=== PATIENT | female | born 1995 | race Caucasian/White ===

== ENCOUNTER 2017-11-12 19:14 | Emergency (ER) | END 2017-11-12 22:08 | disposition home or self-care (01) ==

== ENCOUNTER 2018-05-31 12:10 | Outpatient (CLI) | payer MEDICAID ==
[~2018-05-31] VITALS: Ht 175.3 cm; Wt 75.4 kg
[~2018-05-31 12:10] MED LIST: CEPH-443 PO; IBUP-1542 PO; NORE1TAB70 PO
[2018-05-31 12:20] VITALS: Ht 175.3 cm; Wt 75.4 kg
--- NOTE | 2018-05-31 14:02 | PN ---
Triage Information Date/Time Reason for visit: Uterine contractions Weeks of Gestation 35+ /Para 3/0 Diabetes: none Hypertention: none Objective Heart Rate: 140's Contractions: None Results/Medications Result Diagram: 05/31/18 1255 05/31/18 1255 Results 24 hrs Laboratory Tests Test 05/31/18 12:55 White Blood Count 9.7 Red Blood Count 3.89 L Hemoglobin 11.2 L Hematocrit 34.4 L Mean Corpuscular Volume 88.4 Mean Corpuscular Hemoglobin 28.8 L Mean Corpuscular Hemoglobin Concent 32.6 Red Cell Distribution Width 12.3 Platelet Count 152 Mean Platelet Volume 13.1 H Immature Granulocytes % 0.700 H Neutrophils % 72.2 Lymphocytes % 18.0 Monocytes % 8.1 Eosinophils % 0.8 Basophils % 0.2 Nucleated Red Blood Cells % 0.0 Immature Granulocytes # 0.070 H Neutrophils # 7.0 Lymphocytes # 1.8 Monocytes # 0.8 Eosinophils # 0.1 Basophils # 0.0 Nucleated Red Blood Cells # 0.0 Prothrombin Time 12.6 Prothrombin Time Ratio 1.0 INR International Normalized Ratio 0.93 Activated Partial Thromboplast Time 25.9 Urine Color YELLOW Urine Clarity SLIGHTLY CLOUDY A Urine pH 5.0 Urine Specific [place] 1.018 Urine Ketones 1+ H Urine Nitrite NEGATIVE Urine Bilirubin NEGATIVE Urine Urobilinogen 1+ H Urine Leukocyte Esterase 1+ H Urine Microscopic RBC 1 Urine Microscopic WBC 5 Urine Squamous Epithelial Cells MODERATE Urine Mucus FEW A Urine Hemoglobin NEGATIVE Urine Glucose NEGATIVE Urine Total Protein NEGATIVE Sodium Level 138 Potassium Level 3.9 Chloride Level 108 Carbon Dioxide Level 25 Anion Gap 5 Blood Urea Nitrogen 6 L Creatinine 0.60 Est Glomerular Filtrat Rate mL/min > 60 Glucose Level 75 Uric Acid 4.6 Calcium Level 9.6 Total Bilirubin 0.4 Direct Bilirubin 0.00 Indirect Bilirubin 0.4 Aspartate Amino Transf (AST/SGOT) 26 Alanine Aminotransferase (ALT/SGPT) 19 Alkaline Phosphatase 178 H Total Protein 6.4 Albumin 3.3 Globulin 3.10 Albumin/Globulin Ratio 1.06 Disposition: Discharge Assessment/Plan BPP 11/18 CX closed Suspected Cholelithiasis Bile acid is pending [facility] hospital in 2 days for NST BPP Questions answered Precautions discussed Follow up with provider PRISCILA ZAMUDIO M.D. May 31, 2018 14:01
--- NOTE | 2018-05-31 14:14 | TRIAGE ---
OB Triage Datetime Report Generated by CPN: 05/31/2018 14:14 Datetime: 05/31/2018 13:52 Stage of : OB Triage Maternal Assessment Level of Consciousness: Fully Conscious DTR's/Clonus: DTRs 1+ Headache: Denies Breath Sounds, Left: Clear and Equal Breath Sounds, Right: Clear and Equal Nausea/Vomiting: Denies RUQ Epigastric Pain: Denies Labor Evaluation Frequency: OCC Monitor Mode: External Duration (sec)2399: 40-50 Quality: Mild Pattern: Normal: <= 5 Contractions in 10 Minutes Resting Tone [place]: Relaxed Heart Rate FHR Baseline Rate: 135 Monitor Mode: External US Variability: Moderate 6-25 bpm Accelerations: 15X15 Decelerations: None Category: Category I Pain Assessment Pain Presence: None/Denies Pain Type: N/A Membrane Status: Intact Datetime: 05/31/2018 13:25 Vaginal Exam Dilatation (cms): 0.0 Effacement (%): 0 Station: -3 Exam By: RRAMIREZ,RN Datetime: 05/31/2018 13:10 Maternal Assessment Level of Consciousness: Fully Conscious DTR's/Clonus: DTRs 1+ Headache: Denies Blurred Vision: No Respiratory Effort: Unlabored Breath Sounds, Left: Clear and Equal Breath Sounds, Right: Clear and Equal Nausea/Vomiting: Denies RUQ Epigastric Pain: Denies Facial Edema: None Labor Evaluation Frequency: OCC Monitor Mode: External Duration (sec)2399: 40-50 Quality: Mild Pattern: Normal: <= 5 Contractions in 10 Minutes Resting Tone [place]: Relaxed Heart Rate FHR Baseline Rate: 135 Monitor Mode: External US Variability: Moderate 6-25 bpm Accelerations: 15X15 Decelerations: None Category: Category I Pain Assessment Pain Presence: None/Denies Pain Type: N/A Membrane Status: Intact Datetime: 05/31/2018 12:19 Assessment Type: Triage EGA: 35.4 Maternal Assessment Level of Consciousness: Fully Conscious DTR's/Clonus: DTRs 2+; No Clonus Headache: Denies Blurred Vision: No Respiratory Effort: Unlabored; Regular Rhythm; Equal Expansion Breath Sounds, Left: Clear and Equal Breath Sounds, Right: Clear and Equal Nausea/Vomiting: Denies RUQ Epigastric Pain: Denies Lower Extremities Edema: None Degree: None Upper Extremities Edema: None Degree: None Facial Edema: None Fall Risk Assessment History of Falling: (0) No Secondary Diagnosis: (0) No Ambulatory Aid: (0) Bedrest/Nurse Assist IV Therapy: (0) No Gait: (0) Normal/Bedrest/Immobile Mental Status: (0) Oriented to Own Ability Fall Score: 0 Fall Risk Score Definition: No Risk: No action required Datetime: 05/31/2018 12:01 Time of Arrival: 05/31/2018 12:01 Arrived By: Ambulatory Arrived From: Home Chief Complaint: PT CAME IN C/O CRAMPING AND CHOLESTASIS Movement: Present Contractions: Denies/Absent Rupture of Membranes: Denies Vaginal Discharge: Denies Recent Sexual Intercouse: Denies Abdominal Trauma: Not Applicable Additional Patient Complaints: NONE Time Provider Notified: 05/31/2018 12:19 Provider Notified: POLLO Initial Plan: MONITOR AND BPP
== END 2018-05-31 14:10 | disposition home or self-care (01) ==
LOC: OBT 12:10 → L-D 12:12 → OBT 14:10
PROVIDERS: ATTEND Obstetrics & Gynecology
DX: O62.9 Abnormality of forces of labor, unspecified (principal); Z3A.35 35 weeks gestation of pregnancy
CPT/HCPCS: 76818; 80053; 81001; 84560; 85025; 85610; 85730; Z7500; G0463

== ENCOUNTER 2018-07-01 09:27 | Inpatient (IN) | payer MEDICAID ==
[~2018-07-01] VITALS: Ht 175.3 cm; Wt 78.3 kg
[2018-07-01 09:48] VITALS: Ht 175.3 cm; Wt 78.3 kg
[2018-07-01 09:49] VITALS: BP 126/73; PULSE 74; RESP 18
--- NOTE | 2018-07-01 12:43 | TRIAGE ---
OB Triage Datetime Report Generated by CPN: 07/01/2018 12:43 Datetime: 07/01/2018 11:20 Time of Arrival: 07/01/2018 09:25 EGA: 39.4 Arrived By: Ambulatory Arrived From: Home Chief Complaint: c/o uc Movement: Present Contractions: Irregular Rupture of Membranes: Denies Vaginal Bleeding: None Vaginal Discharge: Denies Recent Sexual Intercouse: Denies Abdominal Trauma: Not Applicable Patient Complaints: Contractions Time Provider Notified: 07/01/2018 09:54 Provider Notified: Initial Plan: r/o labor Datetime: 07/01/2018 10:31 Labor Evaluation Frequency: x5 Monitor Mode: External Duration (sec)2399: 50-120 Quality: Mild Pattern: Normal: <= 5 Contractions in 10 Minutes Resting Tone [place]: Relaxed Heart Rate FHR Baseline Rate: 135 Monitor Mode: External US Variability: Moderate 6-25 bpm Accelerations: 15X15 Decelerations: Variable Category: Category II Pain Assessment Pain Scale: 10 Pain Presence: Intermittent Pain Type: Contraction Pain Location: Abdomen Pain Goal: 3 Datetime: 07/01/2018 09:48 Vaginal Exam Dilatation (cms): 0.5 Exam By: wliu Datetime: 07/01/2018 09:47 Assessment Type: Triage Maternal Assessment Level of Consciousness: Fully Conscious DTR's/Clonus: DTRs 2+; No Clonus Headache: Denies Blurred Vision: No Respiratory Effort: Unlabored; Regular Rhythm; Equal Expansion Breath Sounds, Left: Clear and Equal Breath Sounds, Right: Clear and Equal Nausea/Vomiting: Denies RUQ Epigastric Pain: Denies Lower Extremities Edema: None Degree: None Upper Extremities Edema: None Degree: None Facial Edema: None Fall Risk Assessment History of Falling: (0) No Secondary Diagnosis: (0) No Ambulatory Aid: (0) Bedrest/Nurse Assist IV Therapy: (0) No Gait: (0) Normal/Bedrest/Immobile Mental Status: (0) Oriented to Own Ability Fall Score: 0 Fall Risk Score Definition: No Risk: No action required Datetime: 05/31/2018 14:10 Time of Arrival: 07/01/2018 09:25 EGA: 40.0 Chief Complaint: c/o uc, deny srom, deny vag. bleeding Movement: Present Contractions: Irregular Rupture of Membranes: Denies Vaginal Bleeding: None Vaginal Discharge: Denies Recent Sexual Intercouse: Denies Abdominal Trauma: Not Applicable Patient Complaints: Contractions Time Provider Notified: 07/01/2018 09:54 Provider Notified: marcos Initial Plan: r/o labor Datetime: 05/31/2018 12:19 EGA: 35.4 Fall Score: 0 Fall Risk Score Definition: No Risk: No action required
[2018-07-01] MEDS ORDERED: MISOPROSTOL 200 MCG TAB PR PRN (13:00)
[2018-07-01] MEDS ORDERED: AMPICILLIN 2 GM/NS (PMX) 100 ML IV ONE (13:00)
[2018-07-01] MEDS ORDERED: METHYLERGONOVINE 0.2 MG INJ IM PRN (13:00)
[2018-07-01] MEDS ORDERED: MISOPROSTOL 50 MCG CAPSULE PO SCH (13:00)
[2018-07-01] MEDS ORDERED: IBUPROFEN 600 MG TAB PO PRN (13:00)
[2018-07-01] MEDS ORDERED: OXYCODONE/ASPIRIN (4.88/325) TAB PO PRN (13:00)
[2018-07-01] MEDS ORDERED: LIDOCAINE 1% (MPF) 30 ML INJ INJ PRN (13:00)
[2018-07-01] MEDS ORDERED: CARBOPROST 250 MCG INJ IM PRN (13:00)
[2018-07-01] MEDS ORDERED: OXYTOCIN 30 UNITS/LR 500 ML IV PRN (13:00)
[2018-07-01] MEDS ORDERED: BUTORPHANOL 2 MG INJ IV PRN (13:00)
[2018-07-01] MEDS ORDERED: OXYTOCIN 30 UNITS/LR 500 ML IV SCH ×2 (13:00)
[2018-07-01] MEDS: LACTATED RINGER'S 1,000 ML IV SCH ×3 (13:48→17:29)
--- NOTE | 2018-07-01 15:20 | HP ---
Date/Time of Note Date/Time of Note DATE: 07/01/18 TIME: 15:14 OB - History Hx of Present Free Text/Dictation July 01, 2018 Estimated Due Date: July 04, 2018 : 3 Para: 0 Care: Good Care Other Concerns: 23-year-old G3, P0 with IUP at 39 weeks and 4 days and [facility] presented to triage for rule out labor due to contractions. Patient reports had been complaining of itching of the palms for the past 2 months. She had been sent previously for rule out cholestasis of . Labs are unavailable. She denies any leaking of fluid, vaginal bleeding or decreased movement. Patient had good care. records reviewed. Past Family/Social History * Past Medical, Surgical, Family and Obstetric Histories reviewed from chart. Blood Type: A+ Rubella: immune RPR/VDRL: Negative GBS Status: Unknown HBsAG: Negative OB Admission Exam Vital Signs Vital Signs Vital Signs Date Temp Pulse Resp B/P (MAP) Pulse Ox O2 O2 Flow FiO2 Time Delivery Rate 07/01/18 98.4 74 18 126/73 09:49 (90) Physical Exam HEENT: WNL Lungs: Clear Reflexes: Normal Cervical Dilatation: Fingertip Effacement: 50% Station: -2 Membranes: Intact Heart Rate: 130's Accelerations: Accelerations Present Decelerations: No Decelerations Contractions on Admission: < 5 Minutes Apart Intensity: Moderate Last 72 hours Lab Results CBC & BMP 07/01/18 13:30 OB Assessment/Plan Other Assessment: IUP at 39 weeks and 4 days Itching of the palms, persistent for the past 2 months Cannot rule out cholestasis of GBS unknown Positive chlamydia, no record of treatment. Consider treatment with Azithromycin 1gram x 1 consider GBS prophylaxis. Contacted the clinic, no record available I discussed with the patient and recommended regarding induction, Risk and benefit of induction discussed as well as risks of possible cholestasis of and risk of complication of to the fetus and in detail. Patient desires to proceed with induction. Informed consent was obtained. Patient was admitted for induction. Modes of induction including Cytotec versus follow-up versus Pitocin discussed. Desires to proceed with Cytotec. All questions were answered to patient with satisfaction and patient verbalized understanding AARON LAZO MD July 01, 2018 15:20
[2018-07-01] MEDS ORDERED: AZITHROMYCIN 500 MG TAB PO ONE (16:00)
--- NOTE | 2018-07-01 16:05 | PREAC ---
Date/Time of Note Date/Time of Note DATE: 07/01/18 TIME: 16:04 Anesthesia Eval and Record Evaluation Time Pre-Procedure Interview DATE: 07/01/18 TIME: 16:04 Age 23 Sex female NPO: 8 hrs Preoperative diagnosis labor pain Planned procedure epidural Past Medical History Past Medical History: Includes : Gestational age: (39.4) Surgery & Anesthesia Issues No known issue Meds Anticoagulation: No Beta Tika within 24 hr: No Reason Beta Tika not given: Pt. not on B-Tika No Active Prescriptions or Reported Meds Current Medications Lactated Ringer's 1,000 ml @ 125 mls/hr Q8H IV Last administered on 07/01/18at 13:48; Admin Dose 125 MLS/HR; Start 07/01/18 at 12:35 Ampicillin 50 ml @ 100 mls/hr Q4H IV ; Start 07/01/18 at 17:00 Butorphanol Tartrate (Stadol) 2 mg Q2H PRN IV .PAIN SCALE 6-10; Start 07/01/18 at 13:00 Lidocaine (Xylocaine 1% (Mpf)) 30 ml ONCE PRN INJ .EPISIOTOMY; Start 07/01/18 at 13:00 Oxytocin/Lactated Ringer's 500 ml @ 500 mls/hr ONCE POST IV ; Start 07/01/18 at 13:00 Oxytocin/Lactated Ringer's 500 ml @ 125 mls/hr POST IV ; Start 07/01/18 at 13:00 Ibuprofen (Motrin) 600 mg ONCE PRN PO .PAIN 1-5; Start 07/01/18 at 13:00 Oxycodone/Aspirin (Percodan) 2 tab ONCE PRN PO .PAIN 6-10; Start 07/01/18 at 13:00 Oxytocin/Lactated Ringer's 500 ml @ 0 mls/hr ONCE PRN IV .VAGINAL BLEEDING; Start 07/01/18 at 13:00 Methylergonovine Maleate (Methergine) 0.2 mg ONCE PRN IM .VAGINAL BLEEDING; Start 07/01/18 at 13:00 Carboprost Tromethamine (Hemabate) 250 mcg ONCE PRN IM .VAGINAL BLEEDING; Start 07/01/18 at 13:00 Misoprostol (Cytotec) 1,000 mcg ONCE PRN [place] .VAGINAL BLEEDING; Start 07/01/18 at 13:00 Misoprostol (Cytotec 50 Mcg Capsule) 50 mcg Q4 PO Last administered on 07/01/18at 14:30; Admin Dose 50 MCG; Start 07/01/18 at 13:00 Meds reviewed: Yes Allergies Coded Allergies: No Known Allergy (Verified , 05/31/18) Allergies Reviewed: Yes Labs/Studies Labs Reviewed: Reviewed by anesthesiologist Result Diagram: 07/01/18 1330 Laboratory Tests 07/01/18 13:30 Blood Bank Test 07/01/18 13:30 Antibody Screen NEGATIVE Blood Type A POSITIVE Rh Immune Globulin Candidate NO test: Positive Studies: ECG (n/a), CXR (n/a) Pre-procedure Exam Last vitals Vital Signs Date Temp Pulse Resp B/P (MAP) Pulse Ox O2 O2 Flow FiO2 Time Delivery Rate 07/01/18 98.4 74 18 126/73 09:49 (90) Airway: Adequate mouth opening Mallampati: Mallampati I Teeth: Normal Lung: Normal Heart: Normal ASA Physical Status ASA physical status: 2 Emergency: None Planned Anesthetic Neuraxial: Epidural Pre-operative Attestations Prior to commencing anesthesia and surgery, the patient was re-evaluated, there was verification of: *The patient's identity *The results of appropriate recent lab work and preoperative vital signs *The above evaluation not changing prior to induction *Anesthetic plan, risk benefits, alternative and complications discussed with patient/family; questions answered; patient/family understands, accepts and wishes to proceed. ILENE CONLEY MD July 01, 2018 16:05
[2018-07-01] MEDS ORDERED: FENTAnyl 2MCG/ML-ROPIV 0.2% 100 ML ONE (16:14)
[2018-07-01] MEDS ORDERED: DIPHENHYDRAMINE 50 MG INJ IV PRN (16:30)
[2018-07-01] MEDS ORDERED: NALOXONE (0.4 MG/ML) INJ IV PRN (16:30)
[2018-07-01] MEDS ORDERED: ONDANSETRON 4 MG INJ IV PRN (16:30)
[2018-07-01] MEDS: AMPICILLIN 1 GM/NS (PMX) 50 ML IV SCH ×2 (18:47→23:08)
[2018-07-01] MEDS: FENTAnyl 2MCG/ML-ROPIV 0.2% 100 ML BAG EPI SCH (23:39)
[2018-07-02] MEDS: LACTATED RINGER'S 1,000 ML IV SCH ×4 (03:01→22:31)
[2018-07-02] MEDS: AMPICILLIN 1 GM/NS (PMX) 50 ML IV SCH ×6 (03:01→23:41)
[2018-07-02] MEDS ORDERED: OXYTOCIN 30 UNITS/LR 500 ML IV SCH (03:30)
--- NOTE | 2018-07-02 06:55 | PAC ---
Date/Time of Note Date/Time of Note DATE: 07/02/18 TIME: 06:55 Post-Anesthesia Notes Post-Anesthesia Note Last documented vital signs Vital Signs Date Temp Pulse Resp B/P (MAP) Pulse Ox O2 O2 Flow FiO2 Time Delivery Rate 07/01/18 98.4 74 18 126/73 99 09:49 (90) Activity: WNL Respiratory function: WNL Cardiovascular function: WNL Mental status: Baseline Pain reasonably controlled: Yes Hydration appropriate: Yes Nausea/Vomiting absent: No ILENE CONLEY MD July 02, 2018 06:55
[2018-07-02] MEDS: FENTAnyl 2MCG/ML-ROPIV 0.2% 100 ML BAG EPI SCH ×3 (07:59→22:34)
--- NOTE | 2018-07-02 18:40 | QN ---
Documentation Comment progress note patient seen and evaluated vs stable afebrile ab gravid nt extremity no edema no calf tenderness ve 2/50/-3 fhr cat 1 toco regular a/ iup at 39 wks ga, suspected cholestasis of , currently on pitocin for induction p/ anticipate vaginal delivery CAITY ABAD MD July 02, 2018 18:40
[2018-07-03] MEDS: AMPICILLIN 1 GM/NS (PMX) 50 ML IV SCH ×2 (03:30→07:42)
[2018-07-03] MEDS: FENTAnyl 2MCG/ML-ROPIV 0.2% 100 ML BAG EPI SCH (06:39)
[2018-07-03] MEDS: LACTATED RINGER'S 1,000 ML IV SCH ×2 (06:41→07:43)
[2018-07-03] MEDS ORDERED: CEFAZOLIN 2 GM/50 ML (PMX) 50 ML IVPB ONE (08:30)
--- NOTE | 2018-07-03 08:40 | HPN ---
Date/Time of Note Date/Time of Note DATE: 07/03/18 TIME: 08:38 Interval H&P Admission Note Pt. seen H&P reviewed: Systems changes noted below iup at 40 wks ga, suspected cholestasis of , recently treated for chlamydia, failed induction CAITY ABAD MD July 03, 2018 08:40
--- NOTE | 2018-07-03 08:43 | PREAC ---
Date/Time of Note Date/Time of Note DATE: 07/03/18 TIME: 08:41 Anesthesia Eval and Record Evaluation Time Pre-Procedure Interview DATE: 07/03/18 TIME: 08:41 Age 23 Sex female NPO: 8 hrs Preoperative diagnosis failure to progress Planned procedure c section Past Medical History Past Medical History: None Surgery & Anesthesia Issues No known issue Meds Anticoagulation: No Beta Tika within 24 hr: No Reason Beta Tika not given: Pt. not on B-Tika No Active Prescriptions or Reported Meds Current Medications Lactated Ringer's 1,000 ml @ 125 mls/hr Q8H IV Last administered on 07/03/18at 07:43; Admin Dose 125 MLS/HR; Start 07/01/18 at 12:35 Ampicillin 50 ml @ 100 mls/hr Q4H IV Last administered on 07/03/18at 07:42; Admin Dose 100 MLS/HR; Start 07/01/18 at 17:00 Butorphanol Tartrate (Stadol) 2 mg Q2H PRN IV .PAIN SCALE 6-10; Start 07/01/18 at 13:00 Lidocaine (Xylocaine 1% (Mpf)) 30 ml ONCE PRN INJ .EPISIOTOMY; Start 07/01/18 at 13:00 Oxytocin/Lactated Ringer's 500 ml @ 500 mls/hr ONCE POST IV ; Start 07/01/18 at 13:00 Oxytocin/Lactated Ringer's 500 ml @ 125 mls/hr POST IV ; Start 07/01/18 at 13:00 Ibuprofen (Motrin) 600 mg ONCE PRN PO .PAIN 1-5; Start 07/01/18 at 13:00 Oxycodone/Aspirin (Percodan) 2 tab ONCE PRN PO .PAIN 6-10; Start 07/01/18 at 13:00 Oxytocin/Lactated Ringer's 500 ml @ 0 mls/hr ONCE PRN IV .VAGINAL BLEEDING Last administered on 07/02/18at 03:12; Admin Dose 1 MLS/HR; Start 07/01/18 at 13:00 Methylergonovine Maleate (Methergine) 0.2 mg ONCE PRN IM .VAGINAL BLEEDING; Start 07/01/18 at 13:00 Carboprost Tromethamine (Hemabate) 250 mcg ONCE PRN IM .VAGINAL BLEEDING; Start 07/01/18 at 13:00 Misoprostol (Cytotec) 1,000 mcg ONCE PRN [place] .VAGINAL BLEEDING; Start 07/01/18 at 13:00 Diphenhydramine HCl (Benadryl) 25 mg Q4H PRN IV .PRURITUS; Start 07/01/18 at 16:30 Ondansetron HCl (Zofran Inj) 4 mg Q6H PRN IV .NAUSEA/VOMITING; Start 07/01/18 at 16:30 Naloxone HCl (Narcan) 0.2 mg Q2M PRN IV .RESP RATE; Start 07/01/18 at 16:30 Fentanyl/ Ropivacaine 100 ml EPIDURAL (PCEA) EPI Last administered on 07/03/18at 06:39; Admin Dose 100 ML; Start 07/01/18 at 16:30 Cefazolin Sodium/ Dextrose 50 ml @ 100 mls/hr ONCE ONCE IVPB ; Start 07/03/18 at 08:30; Stop 07/03/18 at 08:59 Meds reviewed: Yes Allergies Coded Allergies: No Known Allergy (Verified , 05/31/18) Allergies Reviewed: Yes Labs/Studies Labs Reviewed: Reviewed by anesthesiologist Result Diagram: 07/01/18 2184 test: N/A Pre-procedure Exam Last vitals Vital Signs Date Temp Pulse Resp B/P (MAP) Pulse Ox O2 O2 Flow FiO2 Time Delivery Rate 07/01/18 98.4 74 18 126/73 09:49 (90) Airway: Adequate mouth opening, Adequate thyromental dist Mallampati: Mallampati II Teeth: Normal Lung: Normal Heart: Normal ASA Physical Status ASA physical status: 1 Emergency: None Pre-operative Attestations Prior to commencing anesthesia and surgery, the patient was re-evaluated, there was verification of: *The patient's identity *The results of appropriate recent lab work and preoperative vital signs *The above evaluation not changing prior to induction *Anesthetic plan, risk benefits, alternative and complications discussed with p atient/family; questions answered; patient/family understands, accepts and wishes to proceed. CARA ESTRADA DO July 03, 2018 08:43
[2018-07-03] MEDS ORDERED: LIDOCAINE 2% (SDV) 5 ML INJ ONE (08:55)
[2018-07-03] MEDS ORDERED: FENTAnyl 50 MCG/ML VIAL ONE ×2 (08:56→09:21)
[2018-07-03] MEDS ORDERED: NA BICARB 50 MEQ/50 ML VIAL ONE (08:56)
[2018-07-03] MEDS ORDERED: DIPHENHYDRAMINE 50 MG INJ IV PRN (09:00)
[2018-07-03] MEDS ORDERED: HYDROmorphONE 0.5 MG/0.5 ML SYG IV PRN ×2 (09:00)
[2018-07-03] MEDS ORDERED: ONDANSETRON 4 MG INJ IV PRN (09:00)
[2018-07-03] MEDS ORDERED: NALOXONE (0.4 MG/ML) INJ IV PRN (09:00)
[2018-07-03] MEDS ORDERED: ZOLPIDEM 5 MG TAB PO PRN (09:00)
[2018-07-03] MEDS ORDERED: DEXAMETHASONE 4 MG/ML 1 ML INJ ONE (09:07)
[2018-07-03] MEDS ORDERED: MIDAZOLAM 1 MG/ML 2 ML INJ ONE (09:22)
[2018-07-03] MEDS ORDERED: morphine SULFATE/PF (10 MG/10 ML) INJ ONE (09:38)
--- NOTE | 2018-07-03 10:14 | PAC ---
Date/Time of Note Date/Time of Note DATE: 07/03/18 TIME: 10:13 Post-Anesthesia Notes Post-Anesthesia Note Last documented vital signs Vital Signs Date Temp Pulse Resp B/P (MAP) Pulse Ox O2 O2 Flow FiO2 Time Delivery Rate 07/02 98 102 18 120/59 95 Activity: WNL Respiratory function: WNL Cardiovascular function: WNL Mental status: Baseline Pain reasonably controlled: Yes Hydration appropriate: Yes Nausea/Vomiting absent: Yes CARA ESTRADA DO July 03, 2018 10:14
[2018-07-03] MEDS ORDERED: OXYTOCIN 30 UNITS/LR 500 ML IV SCH (10:17)
--- NOTE | 2018-07-03 10:17 | OPPN ---
Date/Time of Note Date/Time of Note DATE: 07/03/18 TIME: 10:15 Operative Report Planned Procedure Procedure date July 03, 2018 Procedure(s) primary low transverse CD Performed by see signature line Piledriver Carpenter: FATOU COHEN MD 2nd Piledriver Carpenter none Anesthesiologist: CARA ESTRADA DO Pre-procedure diagnosis iup at 40 wks ga, suspected cholestasis of , recently treated for chlamydia, failed induction [id number] Anesthesia Type: [id number] epidural Post-Procedure Post-procedure diagnosis same Findings A viable male 8/9 weight 8lb 5 oz. normal uterus tubes and ovaries Estimated Blood Loss: 500 - 600 mls (500) Specimen(s) none Grafts/Implant(s) none Complication(s) none CAITY ABAD MD July 03, 2018 10:17
[2018-07-03] MEDS ORDERED: OXYTOCIN 30 UNITS/LR 500 ML IV PRN (10:30)
[2018-07-03] MEDS ORDERED: NACL 0.9% 3 ML SYG IV SCH (10:30)
[2018-07-03] MEDS ORDERED: OXYCODONE/ACETAMINOPHEN (5/325) TAB PO PRN (10:30)
[2018-07-03] MEDS ORDERED: LANOLIN HPA 1 PKT TOP PRN (10:30)
[2018-07-03] MEDS ORDERED: CARBOPROST 250 MCG INJ IM PRN (10:30)
[2018-07-03] MEDS ORDERED: METHYLERGONOVINE 0.2 MG INJ IM PRN (10:30)
[2018-07-03] MEDS ORDERED: MISOPROSTOL 200 MCG TAB PR PRN (10:30)
[2018-07-03] MEDS ORDERED: CEFAZOLIN 2 GM/50 ML (PMX) 50 ML IVPB SCH (10:30)
[2018-07-03] MEDS: KETOROLAC 30 MG INJ IV PRN ×2 (10:45→20:36)
[2018-07-03 12:15] VITALS: BP 127/83; PULSE 78; RESP 20
[2018-07-03 13:15] VITALS: BP 123/81; PULSE 85; RESP 16
[2018-07-03 16:00] VITALS: BP 124/79; PULSE 90; RESP 20
[2018-07-03] MEDS: CEFAZOLIN 2 GM/50 ML (PMX) 50 ML IVPB SCH (18:16)
[2018-07-03 19:40] VITALS: BP 118/70; RESP 20
[2018-07-03] MEDS: SENNA/DOCUSATE NA (8.6MG/50MG) TAB PO SCH (20:35)
[2018-07-04] VITALS: BP 112/68; RESP 18
[2018-07-04] MEDS: LACTATED RINGER'S 1,000 ML IV SCH ×3 (01:10→17:00)
[2018-07-04] MEDS: CEFAZOLIN 2 GM/50 ML (PMX) 50 ML IVPB SCH ×2 (01:38→10:23)
[2018-07-04 04:00] VITALS: BP 107/66; PULSE 83; RESP 19
[2018-07-04] MEDS: KETOROLAC 30 MG INJ IV PRN (05:53)
[2018-07-04 09:00] VITALS: BP 100/56; PULSE 89; RESP 18
[2018-07-04] MEDS: SENNA/DOCUSATE NA (8.6MG/50MG) TAB PO SCH ×3 (10:23→22:12)
[2018-07-04] MEDS: OXYCODONE/ACETAMINOPHEN (5/325) TAB PO PRN (12:58)
--- NOTE | 2018-07-04 13:31 | QN ---
Documentation Comment POD#1 Pt is doing well although has pain appropriate to the 1st post-op day. + . Minimal bleeding. T=98.1 BP 100/56 Fundus firm. Dressing clean, dry and intact. Lochia minimal. Ext 1+ edema. WBC 12.3 Hgb 8 Plts 112K. P: Continue care. NIKI CASE MD July 04, 2018 13:31
[2018-07-04] MEDS: IBUPROFEN 800 MG TAB PO SCH ×2 (13:44→22:12)
[2018-07-04 16:00] VITALS: BP 99/58; PULSE 81; RESP 18
[2018-07-04 20:20] VITALS: BP 110/58; PULSE 97; RESP 17
[2018-07-05 03:36] VITALS: BP 107/59; PULSE 97; RESP 17
[2018-07-05] MEDS: IBUPROFEN 800 MG TAB PO SCH ×3 (05:51→21:43)
[2018-07-05] MEDS: OXYCODONE/ACETAMINOPHEN (5/325) TAB PO PRN ×3 (08:26→18:57)
[2018-07-05 08:30] VITALS: BP 121/60; PULSE 100; RESP 18
--- NOTE | 2018-07-05 09:50 | QN ---
Documentation Comment Postop day #2 Status post primary Patient stable and afebrile Vital signs stable VS - Last 72 Hours, by Label Date Temp Pulse Resp B/P (MAP) Pulse Ox O2 O2 Flow FiO2 Time Delivery Rate 07/05/18 98.5 100 18 121/60 Room Air 08:30 (80) 07/05/18 98.4 97 17 107/59 Room Air 03:36 (75) 07/04/18 98.6 97 17 110/58 Room Air 20:20 (75) 07/04/18 98.3 81 18 99/58 (72) Room Air 16:00 07/04/18 98.1 89 18 100/56 Room Air 09:00 (71) 07/04/18 98.0 83 19 107/66 97 Room Air 04:00 (80) 07/04/18 98.3 18 112/68 97 Room Air 00:00 (83) 07/03/18 98.6 20 118/70 97 Room Air 19:40 (86) 07/03/18 95 17:30 07/03/18 98.4 90 20 124/79 16:00 (94) 07/03/18 85 16 123/81 94 Room Air 13:15 (95) 07/03/18 98.8 78 20 127/83 96 12:15 (98) Hematology - 72 Hrs Test 07/04/18 07:42 Hematocrit 24.4 % (37.0-47.0) #L Hemoglobin 8.0 g/dl (12.0-16.0) #L Mean Corpuscular Hemoglobin 28.4 pg (29.0-33.0) L Mean Corpuscular Hemoglobin Concent 32.8 g/dl (32.0-37.0) Mean Corpuscular Volume 86.5 fl (82.0-101.0) Mean Platelet Volume fl (7.4-10.4) Platelet Count 112 10^3/UL (140-415) L Red Blood Count 2.82 10^6/ul (4.20-5.40) #L Red Cell Distribution Width 13.7 % (11.5-14.5) White Blood Count 12.3 10^3/ul (4.8-10.8) #H Abdomen soft, fundus firm Incision clean,dry,intact Extremities nontender Assessment and plan Patient stable and doing well Encouraged to ambulate Continue with routine postop care FATOU COHEN MD July 05, 2018 09:50
[2018-07-05 16:00] VITALS: BP 107/59; PULSE 86; RESP 18
[2018-07-05 20:00] VITALS: BP 113/69; PULSE 95; RESP 18
[2018-07-05] MEDS: SENNA/DOCUSATE NA (8.6MG/50MG) TAB PO SCH (21:44)
[2018-07-06 04:00] VITALS: BP 120/72; PULSE 83; RESP 17
[2018-07-06] MEDS: IBUPROFEN 800 MG TAB PO SCH (05:53)
--- NOTE | 2018-07-06 07:43 | PD.PPDC ---
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
[2018-07-06 08:15] VITALS: BP 117/73; PULSE 100; RESP 18
[2018-07-06] MEDS: OXYCODONE/ACETAMINOPHEN (5/325) TAB PO PRN (09:46)
[2018-07-06] MEDS: SENNA/DOCUSATE NA (8.6MG/50MG) TAB PO SCH (09:46)
--- NOTE | 2018-07-06 17:35 | DS ---
DATE OF ADMISSION: 07/01/2018 DATE OF DISCHARGE: 07/06/2018 PRIMARY DIAGNOSIS: Intrauterine at 40 weeks' gestational age, suspected cholestasis of pre gnancy, recently treated for chlamydia with failed induction. PROCEDURE: Primary low transverse delivery. CONDITION ON DISCHARGE: Stable. ACTIVITY: None per vagina, no heavy lifting x6 weeks. DIET: Regular. MEDICATIONS ON DISCHARGE: 1. Motrin. 2. Iron. 3. Colace. DISCHARGE SUMMARY: Ms. Lala Hooks underwent a primary delivery on 07/03/2018. She had a vi able male, 8 and 9, respectively, at 1 and 5 minutes; weight 8 pounds 5 ounces. She had an une ventful postop day 1, 2, and 3. Her incision is clean, dry, and intact. She is ambulating, tolerati ng diet, positive flatulence, positive bowel movement. She will be discharged home today and follow up in the clinic in 2 weeks for /postop care. Dictated By: CAITY ENCARNACION/MORALES Conf#: [id number] DID#: [id number]
--- NOTE | 2018-07-07 08:40 | OPR ---
DATE OF OPERATION: 07/06/2018 PREOPERATIVE DIAGNOSES: Intrauterine at 40 weeks' gestational age, suspected cholestasis o f . Recently treated for chlamydia, failed induction. POSTOPERATIVE DIAGNOSES: Intrauterine at 40 weeks' gestational age, suspected cholestasis of . Recently treated for chlamydia, failed induction. PROCEDURE PERFORMED: Primary low transverse delivery. SURGEON: Adiel Abad M.D. SUPERVISOR CLEANING AND ANNEALING: Dr. Stevens. ANESTHESIA: Epidural. COMPLICATIONS: None. ESTIMATED BLOOD LOSS: 500 mL. FINDINGS: A viable male, 8 and 9 respectively at 1 and 5 minutes, weight 8 pounds 5 ounces. N ormal uterus, tubes and ovaries. DESCRIPTION OF PROCEDURE: After explaining the risks, benefits and alternatives, the patient had con sent signed in chart, the patient was taken to the operating room where epidural anesthesia was found to be adequate. She was then prepared and draped in a normal sterile fashion in dorsal supine posit ion with a leftward tilt. A Pfannenstiel skin incision was then made with a scalpel and carried to t he underlying layer of fascia. The fascia was incised in the midline. Incision was extended lateral ly with Medina scissors. The superior aspect of the fascial incision was grasped with curved clamps, e levated and the underlying rectus muscles dissected off bluntly. Attention was then turned to the in ferior aspect of the incision which in similar fashion was grasped, tented up with curved clamps and the rectus muscles dissected off bluntly. The rectus muscle was in midline, peritoneum wyatt ntified, tented up, and sharply with Metzenbaum scissors. This incision was extended superiorly, inf eriorly with good visualization of the bladder. The bladder blade was then inserted and the lower ut erine segment incised in transverse fashion with a scalpel. The uterine incision was extended latera lly. The bladder blade was removed and the 's head delivered atraumatically. The nose and hong th were suctioned, cord clamped and cut. The was handed off to waiting superintendent recreation. The [facility] was then removed. The uterus exteriorized and cleared of all clots and debris. The uterine in cision was repaired with 1-0 chromic in a running locked fashion. A second layer of same suture was used for imbrication and obtained excellent hemostasis. The uterus was returned to the abdomen. The gutters were cleared of all clots. The peritoneum and rectus abdominis muscles reapproximated with 2-0 Vicryl in an interrupted fashion. The fascia was reapproximated with 0 Vicryl in a running fashi on. The subcutaneous tissue was reapproximated with 2-0 plain gut in a running fashion. The skin wa s closed with absorbable nancy. The patient tolerated procedure well. Sponge, lap and needle coun ts were correct. The patient was taken to recovery room in stable condition. Dictated By: ADIEL ENCARNACION/MORALES Conf#: [id number] DID#: [id number] CC: ADIEL ABAD MD;*EndCC*
--- NOTE | 2018-07-07 15:08 | DELSUM ---
Delivery Summary A-C Datetime Report Generated by CPN: 07/07/2018 15:07 DELIVERY PERSONNEL Hospital Liaison: SPENSER, [place] MATERNAL INFORMATION Delivery Anesthesia: Epidural Medications in Delivery: SEE ANESTHESIA RECORD Delivery QBL (ml): 793 Placenta Cultured: No Maternal Complications: PROM; None Other Maternal Complications: IN LABOR LABOR SUMMARY EDC: 07/04/2018 00:00 No. Babies in Womb: 1 Attempted: No Labor Anesthesia: Epidural LABOR INFORMATION Reason for Induction: Not Applicable Onset of Labor: 06/24/2018 23:00 Cervical Ripening Agents: Cytotec @ 50 mcg Oxytocin: Augmentation Group B Beta Strep: Not Done Antibiotics # of Doses: 12 Antibiotics Time of Last Dose: 07/03/2018 09:05 Steroids Given: None Reason Steroids Not Administered: Not Applicable MEMBRANES Membranes Rupture Method: Artificial Rupture of Membranes: 07/03/2018 09:16 Length of Rupture (hr): 0.05 Amniotic Fluid Color: Clear Amniotic Fluid Amount: Moderate Amniotic Fluid Odor: None STAGES OF LABOR Stage 3 hr: 0 Stage 3 min: 1 Total Time in Labor hr: 202 Total Time in Labor min: 20 CSECTION DELIVERY Primary Indication: Secondary Arreof Dilata Secondary Indication: Failed Induction CSection Urgency: Elective CSection Incidence: Primary Labor: Labor Elective: Elective CSection Incision: Lower Uterine Transverse BABY A INFORMATION Infant Delivery Date/Time: 07/03/2018 09:19 Method of Delivery: Born in Route : No : N/A Forceps: N/A Vacuum Extraction: N/A Shoulder Dystocia : N/A SHOULDER DYSTOCIA BABY A Delivery Date/Time: 07/03/2018 09:19 PRESENTATION/POSITION BABY A Presentation: Cephalic Cephalic Presentation: Vertex Breech Presentation: N/A PLACENTA INFORMATION BABY A Placenta Delivery Time : 07/03/2018 09:20 Placenta Method of Delivery: Manual Removal Placenta Status: Delivered SCORES BABY A Heart Rate 1 min: >100 bpm Resp Effort 1 min: Good Cry Reflex Irritability 1 min: Cough/Sneeze/Pulls Away Muscle Tone 1 min: Active Motion Color 1 min: Blue/Pale Resuscitation Effort 1 min: Tactile Stimulation SCORE 1 MIN: 8 Heart Rate 5 min: >100 bpm Resp Effort 5 min: Good Cry Reflex Irritability 5 min: Cough/Sneeze/Pulls Away Muscle Tone 5 min: Active Motion Color 5 min: Body [place], Extremit Blue Resuscitation Effort 5 min: Tactile Stimulation SCORE 5 MIN: 9 INFORMATION BABY A Gestational Age at Delivery: 39.6 Gestational Status: Full Term- 39- 40.6 Weeks Outcome : Liveborn Condition : Stable Infant Sex: Male IDENTIFICATION/MEDS BABY A ID Band Number: [id number] ID Band Location: Right Leg; Left Arm Sensor Applied: Yes Sensor Number: [id number] Sensor Location : Cord Clamp Vitamin K Given : Not Given Erythromycin Given: Not Given WEIGHT/LENGTH BABY A Infant Birthweight (gm): 3850 Weight (lb): 8 Infant Weight (oz): 8 Infant Length (in): 21.00 Length (cm): 53.34 CORD INFORMATION BABY A No. Cord Vessels: 3 Nuchal Cord : N/A Cord Blood Taken: Yes Suction: Mouth; Nose ASSESSMENT BABY A Infant Complications: None Physical Findings at Delivery: Within Normal Limits Infant Respirations: Appears Normal Release And Technical Records Clerk/ALS Called : Yes Infant Care By: RT/RN Transferred To: Remains with Mother
== END 2018-07-06 15:06 | disposition home or self-care (01) | DRG 786 ==
LOC: OBT 09:27 → L-D 09:28 → OBT 12:30 → L-D 12:57 → PP1 07-03 12:46
PROVIDERS: ADMIT Obstetrics & Gynecology; ATTEND Obstetrics & Gynecology
PROC: 10D00Z1 Extraction of Products of Conception, Low, Open Approach (ICD-10-PCS; principal; 2018-07-03)
DX: O48.0 Post-term pregnancy (principal); K83.1 Obstruction of bile duct; O26.62 Liver and biliary tract disorders in childbirth; Z3A.40 40 weeks gestation of pregnancy; Z37.0 Single live birth
CPT/HCPCS: 62322; 76815; 76818; 80307; 85014; 85018; 85025; 85610; 85730; 86592; 86762; 86850; 86900; 86901; 87340; 99464; G0463; J0290; J0690; J1100; J1885; J2210; J2250; J2274; J2405; J2590; J3010; J7120